=== PATIENT | male | born 1985 | race Caucasian/White ===

== ENCOUNTER 2016-08-26 10:27 | Emergency (ER) | payer OTHER, SELFPAY ==
--- NOTE | 2016-08-26 14:12 | EDDOCDS ---
Nurse's Notes [facility] Name: Low Shah Age: 30 yrs Sex: Male : 1985 Arrival Date: 08/26/2016 Time: 10:27 Bed TR7 Private MD: Trung Wong MD Diagnosis: Fall due to ice and snow;Low back pain Presentation: 08/26 10:32 Presenting complaint: Patient states: Pt reports falling on ice approx 45 minutes prior ead to arrival. Denies hitting head from fall. C/o lower back pain. Adult Sepsis Screening: The patient does not have new or worsening altered mentation. Patient's respiratory rate is less than 22. Systolic blood pressure is greater than 100. Patient has a qSOFA score of 0- Negative Sepsis Screen. Suicide/Homicide risk assessment- the patient denies having any suicidal and/or homicidal ideations and does not present with any other emotional, behavioral or mental health complaints. Status: Patient is not a surgical services assistant or dependent. Transition of care: patient was not received from another setting of care. 10:32 Acuity: TARIQ Level 4 ead 10:32 Method Of Arrival: Walkin/Carried/Asstd ead Triage Assessment: 10:33 General: Appears in no apparent distress, Behavior is appropriate for age, cooperative. ead Pain: Location: left low back and right low back Pain currently is 8 out of 10 on a pain scale. HIV screening NA for this visit Offered previously. Respiratory: Airway is patent Respiratory effort is even, unlabored. Musculoskeletal: Reports pain in low back area and left low back. Historical: - Allergies: no known allergies; - Home Meds: 1. none - PMHx: none; - PSHx: none; - Social history: Smoking status: Patient uses tobacco products, current every day smoker. No barriers to communication noted, The patient speaks fluent Icelandic, Speaks appropriately for age. - Family history: Not pertinent. - : The pt / caregiver states he / she is not on anticoagulants. Home medication list is obtained from the patient. - Exposure Risk Screening:: None identified. Screenin:11 Screening information is obtained from the patient. Fall risk: No risks identified. ead Assistance ADL's: requires no assistance with activities of daily living. Abuse/DV Screen: The patient / caregiver reports he/she is: not in a situation that causes fear, pain or injury. Nutritional screening: No deficits noted. Advance Directives: Currently, there is no health care proxy. There is no Power of Dining Chair Seat Cushion Trimmer. home support is adequate. Assessment: 14:03 General:. ead 14:08 Adult Sepsis Screening: The patient does not have new or worsening altered mentation. ead Patient's respiratory rate is less than 22. Systolic blood pressure is greater than 100. Patient has a qSOFA score of 0- Negative Sepsis Screen. General: Appears in no apparent distress, comfortable, Behavior is appropriate for age, cooperative. Neurological: Level of Consciousness is awake, alert, Oriented to person, place, time. Respiratory: Airway is patent Respiratory effort is even, unlabored. Derm: Skin is pink, warm & dry. Vital Signs: 10:29 BP 110 / 72; Pulse 101; Resp 16; Temp 98(O); Pulse Ox 100% ; Weight 108.86 kg (R); cmb Height 6 ft. 4 in. (193.04 cm) (R); Pain 8/10; 14:08 BP 124 / 75; Pulse 67; Resp 16; Temp 97.6(T); Pulse Ox 98% on R/A; ead 10:29 Body Mass Index 29.21 (108.86 kg, 193.04 cm) b Vitals: 10:29 Log In Time: August 26, 2016 at 10:27. cmb ED Course: 10:28 Patient visited by Lisa Henry. cmb 10:28 Patient moved to Waiting cmb 10:29 Trung Wong is Private Physician. cmb 10:30 Patient moved to Pre RCE cmb 10:33 Triage Initiated ead 11:31 Patient moved to Triage 2 kr3 12:31 [facility]ango [facility] dt4 12:32 Loni Juares MD is Attending Physician. dt4 12:32 Patient visited by Francheska Arango PA-C. dt4 12:54 Patient moved to TR1 ct3 14:01 Patient moved to PR1 / 25 ead 14:03 Patient moved to TR7 ead 14:04 Patient moved to PR2 / 26 ead 14:08 Patient moved to TR7 ead 14:10 The patient / caregiver is instructed regarding the plan of care and ED course. ead 14:10 No IV's were initiated during this patient's visit. No procedures done that require ead assistance. Order Results: There are currently no results for this order. Outcome: 13:59 Discharge ordered by Provider. dt4 14:10 Discharge Assessment: Patient awake and alert. obeys commands, Oriented to person, ead place and time. patient administered narcotics - no. 14:11 The following High Risk Discharge criteria are identified: None. Discharged to home ead ambulatory. Condition: improved. Discharge instructions given to patient, Instructed on discharge instructions, follow up and referral plans. medication usage, no driving heavy equipment, no drinking with medication, Demonstrated understanding of instructions, medications, Pt was receptive of discharge instructions/ teaching. Prescriptions given X 2. No special radiology studies were completed. Property sent home with patient. 14:11 Patient left the ED. ead Signatures: Kaitlynn Pearl,DALJIT RN kr3 Jennie Acuña, DIAL MAKER DIAL MAKER ct3 Lisa Henry Emily, RN RN ead Francheska Arango, PA-C PA-C dt4 MTDMaryann
--- NOTE | 2016-08-26 14:12 | EDDOCDS ---
Physician Documentation [facility] Name: Low Shah Age: 30 yrs Sex: Male : 1985 Arrival Date: 08/26/2016 Time: 10:27 Bed TR7 Private MD: Trung Wong MD Disposition: 08/26/16 13:59 Discharged to Home/Self Care. Impression: Fall due to ice and snow, Low back pain. - Condition is Stable. - Discharge Instructions: Back Pain, Adult. - Prescriptions for Naprosyn 500 mg Oral Tablet - take 1 tablet by ORAL route every 12 hours As needed take with food; 30 tablet. Cyclobenzaprine 10 mg Oral Tablet - take 1 tablet by ORAL route at bedtime As needed MAY CAUSE DROWSINESS.; 15 tablet. - Medication Reconciliation, Work Release Form - 1 day, Local Pharmacy Hours form. - Follow up: Emergency Department; When: As needed; Reason: Worsening of conditions. Follow up: Private Physician; When: 2 - 3 days; Reason: Wound/Symptom Recheck, Recheck today's complaints, Continuance of care. - Problem is new. - Symptoms are unchanged. Historical: - Allergies: no known allergies; - Home Meds: 1. none - PMHx: none; - PSHx: none; - Social history: Smoking status: Patient uses tobacco products, current every day smoker. No barriers to communication noted, The patient speaks fluent Lao, Speaks appropriately for age. - Family history: Not pertinent. - : The pt / caregiver states he / she is not on anticoagulants. Home medication list is obtained from the patient. - Exposure Risk Screening:: None identified. Vital Signs: 08/26 10:29 BP 110 / 72; Pulse 101; Resp 16; Temp 98(O); Pulse Ox 100% ; Weight 108.86 kg / 240 lbs cmb (R); Height 6 ft. 4 in. (193.04 cm) (R); Pain 8/10; 14:08 BP 124 / 75; Pulse 67; Resp 16; Temp 97.6(T); Pulse Ox 98% on R/A; ead 10:29 Body Mass Index 29.21 (108.86 kg, 193.04 cm) cmb MDM: 12:51 Spine. Lumbosacral, Complete Ordered. EDMS Signatures: Dispatcher [employer] Bing Laguerre,RN RN Francheska Underwood, MARICEL CONNELLY dt4 TELMAD
--- NOTE | 2016-08-26 14:17 | REP ---
LUMBAR SPINE, FIVE VIEWS: HISTORY: Injury. There is no acute fracture. The L5-S1 intervertebral disc is decreased in height consistent with disc degeneration. The facet joints are normal in appearance. There are 4 mm of retrolisthesis of L5 on S1. There is loss of the normal lordotic curve. IMPRESSION: Degenerative change as described above. Signed by Ish Archer MD 08/26/2016 02:18 P
--- NOTE | 2016-08-28 15:13 | EDDOCDS ---
Physician Documentation [facility] Name: Low Shah Age: 30 yrs Sex: Male : 1985 Arrival Date: 08/26/2016 Time: 10:27 Bed TR7 Private MD: Trung Wong MD Disposition: 08/26/16 13:59 Discharged to Home/Self Care. Impression: Fall due to ice and snow, Low back pain. - Condition is Stable. - Discharge Instructions: Back Pain, Adult. - Prescriptions for Naprosyn 500 mg Oral Tablet - take 1 tablet by ORAL route every 12 hours As needed take with food; 30 tablet. Cyclobenzaprine 10 mg Oral Tablet - take 1 tablet by ORAL route at bedtime As needed MAY CAUSE DROWSINESS.; 15 tablet. - Medication Reconciliation, Work Release Form - 1 day, Local Pharmacy Hours form. - Follow up: Emergency Department; When: As needed; Reason: Worsening of conditions. Follow up: Private Physician; When: 2 - 3 days; Reason: Wound/Symptom Recheck, Recheck today's complaints, Continuance of care. - Problem is new. - Symptoms are unchanged. Historical: - Allergies: no known allergies; - Home Meds: 1. none - PMHx: none; - PSHx: none; - Social history: Smoking status: Patient uses tobacco products, current every day smoker. No barriers to communication noted, The patient speaks fluent Telugu, Speaks appropriately for age. - Family history: Not pertinent. - : The pt / caregiver states he / she is not on anticoagulants. Home medication list is obtained from the patient. - Exposure Risk Screening:: None identified. Vital Signs: 08/26 10:29 BP 110 / 72; Pulse 101; Resp 16; Temp 98(O); Pulse Ox 100% ; Weight 108.86 kg / 240 lbs cmb (R); Height 6 ft. 4 in. (193.04 cm) (R); Pain 8/10; 14:08 BP 124 / 75; Pulse 67; Resp 16; Temp 97.6(T); Pulse Ox 98% on R/A; ead 10:29 Body Mass Index 29.21 (108.86 kg, 193.04 cm) cmb MDM: 12:51 Spine. Lumbosacral, Complete Ordered. EDMS 14:24 [facility] Payment Agreement was scanned into [employer] and attached to record. jp5 14:24 Financial registration complete. jp5 08/27 09:20 T-Sheet-- Draft Copy was scanned into [employer] and attached to record. gb 09:20 Radiology Report was scanned into [employer] and attached to record. gb Signatures: Dispatcher [employer] EDMS Mar Sweet, Reg Reg gb Bing Tang,RN RN Francheska Underwood PA-C PAEddy dt4 Jannie Ross jp5 The chart was reviewed and I authenticate all verbal orders and agree with the evaluation and treatment provided.Attachments: 08/26 14:24 [facility] Payment Agreement jp5 08/27 09:20 T-Sheet-- Draft Copy gb Chart Complete MTDD
--- NOTE | 2016-08-28 15:13 | EDDOCDS ---
Physician Documentation [facility] Name: Low Shah Age: 30 yrs Sex: Male : 1985 Arrival Date: 08/26/2016 Time: 10:27 Bed TR7 Private MD: Trung Wong MD Disposition: 08/26/16 13:59 Discharged to Home/Self Care. Impression: Fall due to ice and snow, Low back pain. - Condition is Stable. - Discharge Instructions: Back Pain, Adult. - Prescriptions for Naprosyn 500 mg Oral Tablet - take 1 tablet by ORAL route every 12 hours As needed take with food; 30 tablet. Cyclobenzaprine 10 mg Oral Tablet - take 1 tablet by ORAL route at bedtime As needed MAY CAUSE DROWSINESS.; 15 tablet. - Medication Reconciliation, Work Release Form - 1 day, Local Pharmacy Hours form. - Follow up: Emergency Department; When: As needed; Reason: Worsening of conditions. Follow up: Private Physician; When: 2 - 3 days; Reason: Wound/Symptom Recheck, Recheck today's complaints, Continuance of care. - Problem is new. - Symptoms are unchanged. Historical: - Allergies: no known allergies; - Home Meds: 1. none - PMHx: none; - PSHx: none; - Social history: Smoking status: Patient uses tobacco products, current every day smoker. No barriers to communication noted, The patient speaks fluent Kinyarwanda, Speaks appropriately for age. - Family history: Not pertinent. - : The pt / caregiver states he / she is not on anticoagulants. Home medication list is obtained from the patient. - Exposure Risk Screening:: None identified. Vital Signs: 08/26 10:29 BP 110 / 72; Pulse 101; Resp 16; Temp 98(O); Pulse Ox 100% ; Weight 108.86 kg / 240 lbs cmb (R); Height 6 ft. 4 in. (193.04 cm) (R); Pain 8/10; 14:08 BP 124 / 75; Pulse 67; Resp 16; Temp 97.6(T); Pulse Ox 98% on R/A; ead 10:29 Body Mass Index 29.21 (108.86 kg, 193.04 cm) cmb MDM: 12:51 Spine. Lumbosacral, Complete Ordered. EDMS 14:24 [facility] Payment Agreement was scanned into [employer] and attached to record. jp5 14:24 Financial registration complete. jp5 08/27 09:20 T-Sheet-- Draft Copy was scanned into [employer] and attached to record. gb 09:20 Radiology Report was scanned into [employer] and attached to record. gb Signatures: Dispatcher [employer] EDMS Mar Sweet, Reg Reg gb Bing Tang,RN RN Francheska Underwood PA-C PAEddy dt4 Jannie Ross jp5 The chart was reviewed and I authenticate all verbal orders and agree with the evaluation and treatment provided.Attachments: 08/26 14:24 [facility] Payment Agreement jp5 08/27 09:20 T-Sheet-- Draft Copy gb Chart Complete MTDD
--- NOTE | 2016-08-28 15:13 | EDDOCDS ---
Nurse's Notes [facility] Name: Low Shah Age: 30 yrs Sex: Male : 1985 Arrival Date: 08/26/2016 Time: 10:27 Bed TR7 Private MD: Trung Wong MD Diagnosis: Fall due to ice and snow;Low back pain Presentation: 08/26 10:32 Presenting complaint: Patient states: Pt reports falling on ice approx 45 minutes prior ead to arrival. Denies hitting head from fall. C/o lower back pain. Adult Sepsis Screening: The patient does not have new or worsening altered mentation. Patient's respiratory rate is less than 22. Systolic blood pressure is greater than 100. Patient has a qSOFA score of 0- Negative Sepsis Screen. Suicide/Homicide risk assessment- the patient denies having any suicidal and/or homicidal ideations and does not present with any other emotional, behavioral or mental health complaints. Status: Patient is not a mobile service rv technician or dependent. Transition of care: patient was not received from another setting of care. 10:32 Acuity: TARIQ Level 4 ead 10:32 Method Of Arrival: Walkin/Carried/Asstd ead Triage Assessment: 10:33 General: Appears in no apparent distress, Behavior is appropriate for age, cooperative. ead Pain: Location: left low back and right low back Pain currently is 8 out of 10 on a pain scale. HIV screening NA for this visit Offered previously. Respiratory: Airway is patent Respiratory effort is even, unlabored. Musculoskeletal: Reports pain in low back area and left low back. Historical: - Allergies: no known allergies; - Home Meds: 1. none - PMHx: none; - PSHx: none; - Social history: Smoking status: Patient uses tobacco products, current every day smoker. No barriers to communication noted, The patient speaks fluent Romansh, Speaks appropriately for age. - Family history: Not pertinent. - : The pt / caregiver states he / she is not on anticoagulants. Home medication list is obtained from the patient. - Exposure Risk Screening:: None identified. Screenin:11 Screening information is obtained from the patient. Fall risk: No risks identified. ead Assistance ADL's: requires no assistance with activities of daily living. Abuse/DV Screen: The patient / caregiver reports he/she is: not in a situation that causes fear, pain or injury. Nutritional screening: No deficits noted. Advance Directives: Currently, there is no health care proxy. There is no Power of Informal Waiter/Waitress. home support is adequate. Assessment: 14:03 General:. ead 14:08 Adult Sepsis Screening: The patient does not have new or worsening altered mentation. ead Patient's respiratory rate is less than 22. Systolic blood pressure is greater than 100. Patient has a qSOFA score of 0- Negative Sepsis Screen. General: Appears in no apparent distress, comfortable, Behavior is appropriate for age, cooperative. Neurological: Level of Consciousness is awake, alert, Oriented to person, place, time. Respiratory: Airway is patent Respiratory effort is even, unlabored. Derm: Skin is pink, warm & dry. Vital Signs: 10:29 BP 110 / 72; Pulse 101; Resp 16; Temp 98(O); Pulse Ox 100% ; Weight 108.86 kg (R); cmb Height 6 ft. 4 in. (193.04 cm) (R); Pain 8/10; 14:08 BP 124 / 75; Pulse 67; Resp 16; Temp 97.6(T); Pulse Ox 98% on R/A; ead 10:29 Body Mass Index 29.21 (108.86 kg, 193.04 cm) b Vitals: 10:29 Log In Time: August 26, 2016 at 10:27. cmb ED Course: 10:28 Patient visited by Lisa Henry. cmb 10:28 Patient moved to Waiting cmb 10:29 Trung Wong is Private Physician. cmb 10:30 Patient moved to Pre RCE cmb 10:33 Triage Initiated ead 11:31 Patient moved to Triage 2 kr3 12:31 Francheska Arango PA-C is [facility]. dt4 12:32 Loni Juares MD is Attending Physician. dt4 12:32 Patient visited by Francheska Arango PA-C. dt4 12:54 Patient moved to TR1 ct3 14:01 Patient moved to PR1 / 25 ead 14:03 Patient moved to TR7 ead 14:04 Patient moved to PR2 / 26 ead 14:08 Patient moved to TR7 ead 14:10 The patient / caregiver is instructed regarding the plan of care and ED course. ead 14:10 No IV's were initiated during this patient's visit. No procedures done that require ead assistance. 14:24 [facility] Payment Agreement was scanned into [employer] and attached to record. jp5 15:01 Spine. Lumbosacral, Complete Returned. EDMS 16:08 Patient name changed from Low\S\V\S\Tipton\S\ to Low\S\Vincent\S\Tipton. EDMS 08/27 09:20 T-Sheet-- Draft Copy was scanned into [employer] and attached to record. gb 09:20 Radiology Report was scanned into [employer] and attached to record. gb Order Results: Radiology Order: Spine. Lumbosacral, Complete Test: Spine. Lumbosacral, Complete REASON FOR EXAMINATION: back injury; LUMBAR SPINE, FIVE VIEWS:; ; HISTORY: Injury.; ; There is no acute fracture. The L5-S1 intervertebral disc is decreased in height; consistent with disc degeneration. The facet joints are normal in appearance.; There are 4 mm of retrolisthesis of L5 on S1. There is loss of the normal; lordotic curve.; ; IMPRESSION:; ; Degenerative change as described above.; ; ; Signed by; Ish Archer MD 08/26/2016 02:18 P; Outcome: 08/26 13:59 Discharge ordered by Provider. dt4 14:10 Discharge Assessment: Patient awake and alert. obeys commands, Oriented to person, ead place and time. patient administered narcotics - no. 14:11 The following High Risk Discharge criteria are identified: None. Discharged to home ead ambulatory. Condition: improved. Discharge instructions given to patient, Instructed on discharge instructions, follow up and referral plans. medication usage, no driving heavy equipment, no drinking with medication, Demonstrated understanding of instructions, medications, Pt was receptive of discharge instructions/ teaching. Prescriptions given X 2. No special radiology studies were completed. Property sent home with patient. 14:11 Patient left the ED. ead Signatures: Dispatcher [employer] EDMS Mar Sweet, Reg Kaitlynn Rg RN RN kr3 Jennie Acuña, ER REGISTRAR ER REGISTRAR ct3 Lisa Henry cmBing Agosto RN RN eaFrancheska Acuna, MARICEL PADaryaC dt4 Jannie Ross jp5 Chart Complete MTDD
== END 2016-08-26 14:11 | disposition home or self-care (01) ==
LOC: M ED 10:27
DX: M54.5 Low back pain (principal); F17.200 Nicotine dependence, unspecified, uncomplicated

== ENCOUNTER 2016-09-15 20:15 | Emergency (ER) | payer OTHER ==
[2016-09-15] MEDS ORDERED: NORCO 5/325MG TABLET (BULK) As Ordered ONE (22:54)
[2016-09-15] MEDS ORDERED: IBUPROFEN 800 MG TAB As Ordered ONE (22:55)
--- NOTE | 2016-09-15 23:10 | EDDOCDS ---
Nurse's Notes [facility] Name: Low Shah Age: 30 yrs Sex: Male : 1985 Arrival Date: 09/15/2016 Time: 20:15 Bed Triage 3 Private MD: Trung Wong MD Diagnosis: Pain in left hip Presentation: 09/15 20:19 Presenting complaint: Patient states: pt c/o left hip pain, states seen here approx 1 ead week ago after fall. reports pain worsening since. Adult Sepsis Screening: The patient does not have new or worsening altered mentation. Patient's respiratory rate is less than 22. Systolic blood pressure is greater than 100. Patient has a qSOFA score of 0- Negative Sepsis Screen. Suicide/Homicide risk assessment- the patient denies having any suicidal and/or homicidal ideations and does not present with any other emotional, behavioral or mental health complaints. 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 Transition of care: patient was not received from another setting of care. 20:19 Acuity: TARIQ Level 4 ead 20:19 Method Of Arrival: Walkin/Carried/Asstd ead 20:20 Presenting complaint: Patient states: pt reports unable to reach primary care, unable ead to schedule follow up appointment. Triage Assessment: 20:20 General: Appears in no apparent distress, Behavior is appropriate for age, cooperative. ead Pain: Location: left hip Pain currently is 7 out of 10 on a pain scale. HIV screening NA for this visit Offered previously. Neurological: Level of Consciousness is awake, alert, obeys commands, Oriented to person, place, time. Respiratory: No deficits noted. Derm: Skin is pink, warm & dry. Musculoskeletal: Reports pain in left hip and left leg. Historical: - Allergies: no known allergies; - Home Meds: 1. none - PMHx: none; - PSHx: none; - Social history: Smoking status: Patient uses tobacco products, current every day smoker. No barriers to communication noted, The patient speaks fluent Uruguayan, Speaks appropriately for age. - Family history: Not pertinent. - : The pt / caregiver states he / she is not on anticoagulants. Home medication list is obtained from the patient. - Exposure Risk Screening:: None identified. Screenin:07 Screening information is obtained from the patient. Fall risk: No risks identified. rw1 Assistance ADL's: requires no assistance with activities of daily living. Abuse/DV Screen: The patient / caregiver reports he/she is: not in a situation that causes fear, pain or injury. Nutritional screening: No deficits noted. Advance Directives: Currently, there is no health care proxy. home support is adequate. Assessment: 23:07 Reassessment: Patient appears in no apparent distress at this time. Patient states rw1 feeling better. Vital Signs: 20:17 BP 113 / 69; Pulse 84; Resp 18 S; Temp 96.3(O); Pulse Ox 97% on R/A; Weight 99.79 kg gr2 (R); Height 6 ft. 4 in. (193.04 cm) (R); Pain 7/10; 22:54 BP 125 / 73; Pulse 66; Resp 18; Temp 98.7(TE); Pulse Ox 97% on R/A; Pain 6/10; kb5 20:17 Body Mass Index 26.78 (99.79 kg, 193.04 cm) gr2 Vitals: 20:17 Log In Time: September 15, 2016 at 20:17. gr2 ED Course: 20:16 Patient visited by Garry Dykes. gr2 20:16 Patient moved to Waiting gr2 20:17 Trung Wong is Private Physician. gr2 20:18 Patient visited by Garry Dykes. gr2 20:18 Patient moved to Pre RCE gr2 20:19 Triage Initiated ead 22:10 Patient moved to Triage 3 ko2 22:30 Patient visited by Marleen Santoyo RN. ko2 22:36 Ruslan Wong PA is PHCP. mo1 22:36 Brandon De La Fuente DO is Attending Physician. mo1 22:47 Patient visited by Ruslan Wong PA. mo1 22:48 Haroldo Mustafa is Referral Physician. mo1 22:48 Rob Mcintyre is Referral Physician. mo1 22:55 Patient visited by Tim Bowman PCA. kb5 23:07 The patient / caregiver is instructed regarding the plan of care and ED course. rw1 23:07 No IV's were initiated during this patient's visit. No procedures done that require rw1 assistance. Administered Medications: 23:05 Drug: HYDROcodone-acetaminophen 4 pack- 1 packets [hydrocodone 5 mg-acetaminophen 325 rw1 mg tablet (1 tabs)] {Co-Signature: xochilt (Krista Dykes RN).} Route: PO; 23:06 Follow up: Response: Med's dispensed home rw1 23:06 Drug: Ibuprofen 800 mg [ibuprofen 800 mg tablet (1 tabs)] Route: PO; rw1 23:06 Follow up: Response: Pt left department before re-evaluation is appropriate rw1 Order Results: There are currently no results for this order. Outcome: 22:48 Discharge ordered by Provider. mo1 23:07 Discharge Assessment: Patient awake, alert and oriented x 3. No cognitive and/or rw1 functional deficits noted. Patient verbalized understanding of disposition instructions. patient administered narcotics - yes. Pt provided with safe discharge. The following High Risk Discharge criteria are identified: None. Discharged to home ambulatory. Condition: stable. Discharge instructions given to patient, Instructed on discharge instructions, follow up and referral plans. medication usage, no driving heavy equipment, Demonstrated understanding of instructions, medications, Pt was receptive of discharge instructions/ teaching. Prescriptions given X 1. No special radiology studies were completed. Property sent home with patient. 23:09 Patient left the ED. rw1 Signatures: Brien Ruggiero,YEIMY PITTN rw1 Tim Bowman, ZACK BOAT CLEANER kb5 Garry Dykes gr2 Ruslan Wong PA PA mo1 Bing Tang,RN Marleen Bustamante RN RN ko2 Krista lemon MTDD
--- NOTE | 2016-09-15 23:10 | EDDOCDS ---
Physician Documentation [facility] Name: Low Shah Age: 30 yrs Sex: Male : 1985 Arrival Date: 09/15/2016 Time: 20:15 Bed Triage 3 Private MD: Trung Wong MD Disposition: 09/15/16 22:48 Discharged to Home/Self Care. Impression: Pain in left hip. - Condition is Stable. - Discharge Instructions: Arthralgia, Musculoskeletal Pain, Hip Pain. - Prescriptions for Ibuprofen 800 mg Oral Tablet - take 1 tablet by ORAL route every 8 hours As needed take with food; 30 tablet. - Work Release Form - 2 day, Medication Reconciliation, Local Pharmacy Hours form. - Follow up: Haroldo Mustafa; When: Call to arrange an appointment; Reason: Recheck today's complaints, Continuance of care. Follow up: Rbo Mcintyre; When: Call to arrange an appointment; Reason: Recheck today's complaints, Continuance of care. - Problem is an ongoing problem. - Symptoms are unchanged. Historical: - Allergies: no known allergies; - Home Meds: 1. none - PMHx: none; - PSHx: none; - Social history: Smoking status: Patient uses tobacco products, current every day smoker. No barriers to communication noted, The patient speaks fluent South African, Speaks appropriately for age. - Family history: Not pertinent. - : The pt / caregiver states he / she is not on anticoagulants. Home medication list is obtained from the patient. - Exposure Risk Screening:: None identified. Vital Signs: 09/15 20:17 BP 113 / 69; Pulse 84; Resp 18 S; Temp 96.3(O); Pulse Ox 97% on R/A; Weight 99.79 kg / gr2 220 lbs (R); Height 6 ft. 4 in. (193.04 cm) (R); Pain 7/10; 22:54 BP 125 / 73; Pulse 66; Resp 18; Temp 98.7(TE); Pulse Ox 97% on R/A; Pain 6/10; kb5 20:17 Body Mass Index 26.78 (99.79 kg, 193.04 cm) gr2 MDM: 22:44 HYDROcodone-acetaminophen 4 pack- 5 mg-325 mg 1 packets PO Per package directions; mo1 Dispense with patient. 1 po q4h prn for pain ordered. 22:44 Ibuprofen 800 mg PO once ordered. mo1 Administered Medications: 23:05 Drug: HYDROcodone-acetaminophen 4 pack- 1 packets [hydrocodone 5 mg-acetaminophen 325 rw1 mg tablet (1 tabs)] {Co-Signature: xochilt (Krista Dykes RN).} Route: PO; 23:06 Follow up: Response: Med's dispensed home rw1 23:06 Drug: Ibuprofen 800 mg [ibuprofen 800 mg tablet (1 tabs)] Route: PO; rw1 23:06 Follow up: Response: Pt left department before re-evaluation is appropriate rw1 Signatures: Brien Ruggiero LPN LPN rw1 Ruslan Wong PA PA mo1 Bing Tang,RN RN ead Krista lemon MTDD
--- NOTE | 2016-09-18 00:10 | EDDOCDS ---
Nurse's Notes [facility] Name: Low Shah Age: 30 yrs Sex: Male : 1985 Arrival Date: 09/15/2016 Time: 20:15 Bed Triage 3 Private MD: Trung Wong MD Diagnosis: Pain in left hip Presentation: 09/15 20:19 Presenting complaint: Patient states: pt c/o left hip pain, states seen here approx 1 ead week ago after fall. reports pain worsening since. Adult Sepsis Screening: The patient does not have new or worsening altered mentation. Patient's respiratory rate is less than 22. Systolic blood pressure is greater than 100. Patient has a qSOFA score of 0- Negative Sepsis Screen. Suicide/Homicide risk assessment- the patient denies having any suicidal and/or homicidal ideations and does not present with any other emotional, behavioral or mental health complaints. Status: Patient is not a in service education teacher or dependent. Transition of care: patient was not received from another setting of care. 20:19 Acuity: TARIQ Level 4 ead 20:19 Method Of Arrival: Walkin/Carried/Asstd ead 20:20 Presenting complaint: Patient states: pt reports unable to reach primary care, unable ead to schedule follow up appointment. Triage Assessment: 20:20 General: Appears in no apparent distress, Behavior is appropriate for age, cooperative. ead Pain: Location: left hip Pain currently is 7 out of 10 on a pain scale. HIV screening NA for this visit Offered previously. Neurological: Level of Consciousness is awake, alert, obeys commands, Oriented to person, place, time. Respiratory: No deficits noted. Derm: Skin is pink, warm & dry. Musculoskeletal: Reports pain in left hip and left leg. Historical: - Allergies: no known allergies; - Home Meds: 1. none - PMHx: none; - PSHx: none; - Social history: Smoking status: Patient uses tobacco products, current every day smoker. No barriers to communication noted, The patient speaks fluent Somali, Speaks appropriately for age. - Family history: Not pertinent. - : The pt / caregiver states he / she is not on anticoagulants. Home medication list is obtained from the patient. - Exposure Risk Screening:: None identified. Screenin:07 Screening information is obtained from the patient. Fall risk: No risks identified. rw1 Assistance ADL's: requires no assistance with activities of daily living. Abuse/DV Screen: The patient / caregiver reports he/she is: not in a situation that causes fear, pain or injury. Nutritional screening: No deficits noted. Advance Directives: Currently, there is no health care proxy. home support is adequate. Assessment: 23:07 Reassessment: Patient appears in no apparent distress at this time. Patient states rw1 feeling better. Vital Signs: 20:17 BP 113 / 69; Pulse 84; Resp 18 S; Temp 96.3(O); Pulse Ox 97% on R/A; Weight 99.79 kg gr2 (R); Height 6 ft. 4 in. (193.04 cm) (R); Pain 7/10; 22:54 BP 125 / 73; Pulse 66; Resp 18; Temp 98.7(TE); Pulse Ox 97% on R/A; Pain 6/10; kb5 20:17 Body Mass Index 26.78 (99.79 kg, 193.04 cm) gr2 Vitals: 20:17 Log In Time: September 15, 2016 at 20:17. gr2 ED Course: 20:16 Patient visited by Garry Dykes. gr2 20:16 Patient moved to Waiting gr2 20:17 Trung Wong is Private Physician. gr2 20:18 Patient visited by Garry Dykes. gr2 20:18 Patient moved to Pre RCE gr2 20:19 Triage Initiated ead 22:10 Patient moved to Triage 3 ko2 22:30 Patient visited by Marleen Santoyo RN. ko2 22:36 Ruslan Wong PA is PHCP. mo1 22:36 Brandon De La Fuente DO is Attending Physician. mo1 22:47 Patient visited by Ruslan Wong PA. mo1 22:48 Haroldo Mustafa is Referral Physician. mo1 22:48 Rob Mcintyre is Referral Physician. mo1 22:55 Patient visited by Tim Bowman PCA. kb5 23:07 The patient / caregiver is instructed regarding the plan of care and ED course. rw1 23:07 No IV's were initiated during this patient's visit. No procedures done that require rw1 assistance. 23:47 [facility] Payment Agreement was scanned into [employer] and attached to record. pm4 09/16 09:17 T-Sheet-- Draft Copy was scanned into [employer] and attached to record. gb Administered Medications: 09/15 23:05 Drug: HYDROcodone-acetaminophen 4 pack- 1 packets [hydrocodone 5 mg-acetaminophen 325 rw1 mg tablet (1 tabs)] {Co-Signature: xochilt (Krista Dykes RN).} Route: PO; 23:06 Follow up: Response: Med's dispensed home rw1 23:06 Drug: Ibuprofen 800 mg [ibuprofen 800 mg tablet (1 tabs)] Route: PO; rw1 23:06 Follow up: Response: Pt left department before re-evaluation is appropriate rw1 Order Results: There are currently no results for this order. Outcome: 22:48 Discharge ordered by Provider. mo1 23:07 Discharge Assessment: Patient awake, alert and oriented x 3. No cognitive and/or rw1 functional deficits noted. Patient verbalized understanding of disposition instructions. patient administered narcotics - yes. Pt provided with safe discharge. The following High Risk Discharge criteria are identified: None. Discharged to home ambulatory. Condition: stable. Discharge instructions given to patient, Instructed on discharge instructions, follow up and referral plans. medication usage, no driving heavy equipment, Demonstrated understanding of instructions, medications, Pt was receptive of discharge instructions/ teaching. Prescriptions given X 1. No special radiology studies were completed. Property sent home with patient. 23:09 Patient left the ED. rw1 Signatures: Mar Sweet, Reg Reg gb Bahman,Brien,ORACLE BRM DEVELOPER ORACLE BRM DEVELOPER rw1 Tim Bowman, ZACK PRESS PIPE INSPECTOR kb5 Garry Dykes gr2 Ruslan Wong PA PA mo1 Bing Tang,RN Marleen Bustamante RN RN ko2 Haroldo Parra, Reg Reg pm4 Krista lemon Chart Complete MTDD
--- NOTE | 2016-09-18 00:10 | EDDOCDS ---
Physician Documentation [facility] Name: Low Shah Age: 30 yrs Sex: Male : 1985 Arrival Date: 09/15/2016 Time: 20:15 Bed Triage 3 Private MD: Trung Wong MD Disposition: 09/15/16 22:48 Discharged to Home/Self Care. Impression: Pain in left hip. - Condition is Stable. - Discharge Instructions: Arthralgia, Musculoskeletal Pain, Hip Pain. - Prescriptions for Ibuprofen 800 mg Oral Tablet - take 1 tablet by ORAL route every 8 hours As needed take with food; 30 tablet. - Work Release Form - 2 day, Medication Reconciliation, Local Pharmacy Hours form. - Follow up: Haroldo Mustafa; When: Call to arrange an appointment; Reason: Recheck today's complaints, Continuance of care. Follow up: Rob Mcintyre; When: Call to arrange an appointment; Reason: Recheck today's complaints, Continuance of care. - Problem is an ongoing problem. - Symptoms are unchanged. Historical: - Allergies: no known allergies; - Home Meds: 1. none - PMHx: none; - PSHx: none; - Social history: Smoking status: Patient uses tobacco products, current every day smoker. No barriers to communication noted, The patient speaks fluent Emirati, Speaks appropriately for age. - Family history: Not pertinent. - : The pt / caregiver states he / she is not on anticoagulants. Home medication list is obtained from the patient. - Exposure Risk Screening:: None identified. Vital Signs: 09/15 20:17 BP 113 / 69; Pulse 84; Resp 18 S; Temp 96.3(O); Pulse Ox 97% on R/A; Weight 99.79 kg / gr2 220 lbs (R); Height 6 ft. 4 in. (193.04 cm) (R); Pain 7/10; 22:54 BP 125 / 73; Pulse 66; Resp 18; Temp 98.7(TE); Pulse Ox 97% on R/A; Pain 6/10; kb5 20:17 Body Mass Index 26.78 (99.79 kg, 193.04 cm) gr2 MDM: 22:44 HYDROcodone-acetaminophen 4 pack- 5 mg-325 mg 1 packets PO Per package directions; mo1 Dispense with patient. 1 po q4h prn for pain ordered. 22:44 Ibuprofen 800 mg PO once ordered. mo1 23:47 [facility] Payment Agreement was scanned into [employer] and attached to record. pm4 09/16 09:17 T-Sheet-- Draft Copy was scanned into [employer] and attached to record. gb Administered Medications: 09/15 23:05 Drug: HYDROcodone-acetaminophen 4 pack- 1 packets [hydrocodone 5 mg-acetaminophen 325 rw1 mg tablet (1 tabs)] {Co-Signature: xochilt (Krista Dykes RN).} Route: PO; 23:06 Follow up: Response: Med's dispensed home rw1 23:06 Drug: Ibuprofen 800 mg [ibuprofen 800 mg tablet (1 tabs)] Route: PO; rw1 23:06 Follow up: Response: Pt left department before re-evaluation is appropriate rw1 Signatures: Mar Sweet, Reg Reg gb Brien Ruggiero,TYPEWRITER OPERATOR AUTOMATIC TYPEWRITER OPERATOR AUTOMATIC rw1 Ruslan Wong PA PA mo1 Bing Tang,RN RN eaaHroldo Gilliam, Reg Reg pm4 Krista lemon The chart was reviewed and I authenticate all verbal orders and agree with the evaluation and treatment provided.Attachments: 23:47 [facility] Payment Agreement pm4 09/16 09:17 T-Sheet-- Draft Copy gb Chart Complete MTDD
--- NOTE | 2016-09-18 00:10 | EDDOCDS ---
Physician Documentation [facility] Name: Low Shah Age: 30 yrs Sex: Male : 1985 Arrival Date: 09/15/2016 Time: 20:15 Bed Triage 3 Private MD: Trung Wong MD Disposition: 09/15/16 22:48 Discharged to Home/Self Care. Impression: Pain in left hip. - Condition is Stable. - Discharge Instructions: Arthralgia, Musculoskeletal Pain, Hip Pain. - Prescriptions for Ibuprofen 800 mg Oral Tablet - take 1 tablet by ORAL route every 8 hours As needed take with food; 30 tablet. - Work Release Form - 2 day, Medication Reconciliation, Local Pharmacy Hours form. - Follow up: Haroldo Mustafa; When: Call to arrange an appointment; Reason: Recheck today's complaints, Continuance of care. Follow up: Rob Mcintyre; When: Call to arrange an appointment; Reason: Recheck today's complaints, Continuance of care. - Problem is an ongoing problem. - Symptoms are unchanged. Historical: - Allergies: no known allergies; - Home Meds: 1. none - PMHx: none; - PSHx: none; - Social history: Smoking status: Patient uses tobacco products, current every day smoker. No barriers to communication noted, The patient speaks fluent Hong Konger, Speaks appropriately for age. - Family history: Not pertinent. - : The pt / caregiver states he / she is not on anticoagulants. Home medication list is obtained from the patient. - Exposure Risk Screening:: None identified. Vital Signs: 09/15 20:17 BP 113 / 69; Pulse 84; Resp 18 S; Temp 96.3(O); Pulse Ox 97% on R/A; Weight 99.79 kg / gr2 220 lbs (R); Height 6 ft. 4 in. (193.04 cm) (R); Pain 7/10; 22:54 BP 125 / 73; Pulse 66; Resp 18; Temp 98.7(TE); Pulse Ox 97% on R/A; Pain 6/10; kb5 20:17 Body Mass Index 26.78 (99.79 kg, 193.04 cm) gr2 MDM: 22:44 HYDROcodone-acetaminophen 4 pack- 5 mg-325 mg 1 packets PO Per package directions; mo1 Dispense with patient. 1 po q4h prn for pain ordered. 22:44 Ibuprofen 800 mg PO once ordered. mo1 23:47 [facility] Payment Agreement was scanned into [employer] and attached to record. pm4 09/16 09:17 T-Sheet-- Draft Copy was scanned into [employer] and attached to record. gb Administered Medications: 09/15 23:05 Drug: HYDROcodone-acetaminophen 4 pack- 1 packets [hydrocodone 5 mg-acetaminophen 325 rw1 mg tablet (1 tabs)] {Co-Signature: xochilt (Krista Dykes RN).} Route: PO; 23:06 Follow up: Response: Med's dispensed home rw1 23:06 Drug: Ibuprofen 800 mg [ibuprofen 800 mg tablet (1 tabs)] Route: PO; rw1 23:06 Follow up: Response: Pt left department before re-evaluation is appropriate rw1 Signatures: Mar Sweet, Reg Reg gb Brien Ruggiero,ON SITE COORDINATOR ON SITE COORDINATOR rw1 Ruslan Wong PA PA mo1 Bing Tang,RN RN eaHaroldo Gilliam, Reg Reg pm4 Krista lemon The chart was reviewed and I authenticate all verbal orders and agree with the evaluation and treatment provided.Attachments: 23:47 [facility] Payment Agreement pm4 09/16 09:17 T-Sheet-- Draft Copy gb Chart Complete MTDD
== END 2016-09-15 23:09 | disposition home or self-care (01) ==
LOC: M ED 20:15
DX: M16.12 Unilateral primary osteoarthritis, left hip (principal); M70.72 Other bursitis of hip, left hip; F17.210 Nicotine dependence, cigarettes, uncomplicated

== ENCOUNTER → 2016-09-28 | Outpatient (CLI) | payer OTHER ==
--- NOTE | 2016-09-28 17:54 | REP ---
Clinical: Back and left hip pain. Technique: Neutral and lateral views of the left hip. Findings: No acute fracture dislocation. No significant congenital or degenerative changes are appreciated. No periarticular calcifications. Surrounding soft tissues are unremarkable. Impression: Normal left hip. Signed by Lorenzo Whalen MD 09/28/2016 05:45 P
--- NOTE | 2016-09-28 17:58 | REP ---
Clinical: Lower back pain. Technique: AP, lateral, bilateral oblique and coned-down views of the lumbosacral spine. Comparison: 08/26/2016. Findings: Straightening of normal lordosis is stable. No acute fracture / compression injury or subluxation. There is endplate sclerosis and disc space narrowing at the L5-L1 level. Minimal disc space narrowing at the L1-2 level cannot be excluded as well. Impression: Mild degenerative disc disease at the L5-S1 level and possibly L1-L2 levels Signed by Lorenzo Whalen MD 09/28/2016 05:49 P
== END ==
LOC: M WUC 17:29
PROVIDERS: ATTEND Physician Assistant
DX: M54.5 Low back pain (principal); M25.552 Pain in left hip; M51.36 Other intervertebral disc degeneration, lumbar region; M51.37 Other intervertebral disc degeneration, lumbosacral region

== ENCOUNTER → 2016-10-15 | Outpatient (CLI) | payer OTHER ==
[~2016-10-15] MED LIST: CYCL10TA PO; IBUP200C PO
[2016-10-15 16:31] LABS: INR 0.89
== END ==
LOC: M LAB 15:54
PROVIDERS: ATTEND Orthopaedic Surgery
DX: M51.26 Other intervertebral disc displacement, lumbar region (principal)

== ENCOUNTER 2016-10-20 14:22 | Day surgery (SDC) | payer OTHER ==
[~2016-10-20] VITALS: Ht 193 cm; Wt 99.8 kg
[2016-10-20] MEDS ORDERED: LR 1,000 ML IV SCH ×3 (14:30→20:15)
[2016-10-20] MEDS ORDERED: PREGABALIN 75 MG CAP(LYRICA) PO ONE (14:30)
[2016-10-20] MEDS ORDERED: PERCOCET 5MG/325MG TAB PO ONE (14:30)
[2016-10-20] MEDS ORDERED: THROMBIN SOLN 20,000 UNITS KIT As Ordered ONE (17:12)
[2016-10-20] MEDS ORDERED: BUPIVACAINE/EPIN 0.25% 30 ML VIAL As Ordered ONE (17:12)
[2016-10-20] MEDS ORDERED: BACITRACIN PWD 50,000 UNITS VIAL As Ordered ONE (17:12)
[2016-10-20] MEDS ORDERED: PROPOFOL 500 MG/50 ML VIAL As Ordered ONE (18:09)
[2016-10-20] MEDS ORDERED: fentaNYL 250 MCG/5 ML INJECTION (J3010) As Ordered ONE (18:09)
[2016-10-20] MEDS ORDERED: MIDAZOLAM INJ 2 MG/2 ML VIAL (J2250) As Ordered ONE (18:09)
[2016-10-20] MEDS ORDERED: ONDANSETRON 4MG/2ML VIAL (J2405) As Ordered ONE (18:10)
[2016-10-20] MEDS ORDERED: dexameTHASONE 4 MG/ML 1ML VIAL (J1100) As Ordered ONE (18:10)
[2016-10-20] MEDS ORDERED: NEOSTIGMINE 1MG/ML 5 ML SYRINGE (J2710) As Ordered ONE (18:10)
[2016-10-20] MEDS ORDERED: LIDOCAINE 2% INJ 100 MG/5 ML SDV (FOR ANES.) As Ordered ONE (18:10)
[2016-10-20] MEDS ORDERED: GLYCOPYRROLATE INJ 0.2 MG/ML 2 ML VIAL As Ordered ONE (18:10)
[2016-10-20] MEDS ORDERED: ROCURONIUM BROMIDE 50 MG/5 ML VIAL As Ordered ONE (18:10)
[2016-10-20] MEDS ORDERED: HYDROmorphone HCL 2 MG/ML 1ML VIAL (J1170) As Ordered ONE (19:40)
[2016-10-20] MEDS ORDERED: fentaNYL 100 MCG/2 ML INJECTION (J3010) IV PRN (20:15)
[2016-10-20] MEDS ORDERED: PROMETHAZINE INJ 25 MG/ML VIAL (J2550) IV PRN (20:15)
[2016-10-20] MEDS ORDERED: ONDANSETRON 4MG/2ML VIAL (J2405) IV PRN (20:15)
[2016-10-20] MEDS ORDERED: PERCOCET 5MG/325MG TAB PO PRN ×3 (20:15)
[2016-10-20] MEDS: D5W/LR 1,000 ML IV SCH (20:15)
[2016-10-20] MEDS ORDERED: CelecoXIB 400 MG CAP PO ONE (20:15)
[2016-10-20] MEDS ORDERED: HYDROmorphone HCL 1 MG/ML SYRINGE (J1170) IV PRN ×2 (20:15)
[2016-10-20] MEDS ORDERED: CYCLOBENZAPRINE 10 MG TAB PO PRN (20:15)
[2016-10-20 20:30] VITALS: BP 134/86
[2016-10-20 21:00] VITALS: BP 135/82
[2016-10-20] MEDS: PREGABALIN 50 MG CAP (LYRICA) PO SCH (21:34)
[2016-10-20] MEDS: ASCORBIC ACID 500 MG TAB PO SCH (21:35)
[2016-10-20 23:00] VITALS: BP 135/78
[2016-10-21] VITALS: BP 125/61
[2016-10-21 01:00] VITALS: BP 117/70
[2016-10-21 04:00] VITALS: BP 119/72
[2016-10-21] MEDS: D5W/LR 1,000 ML IV SCH (04:35)
--- NOTE | 2016-10-21 07:51 | REP ---
Clinical: Intraoperative positioning. Technique: Portable cross-table view of the lumbar spine. Findings: The probe is identified via posterior approach at the L5-S1 level. Signed by Lorenzo Whalen MD 10/21/2016 07:43 A
[2016-10-21] MEDS: PREGABALIN 50 MG CAP (LYRICA) PO SCH (08:01)
[2016-10-21] MEDS: ASCORBIC ACID 500 MG TAB PO SCH (08:01)
[2016-10-21 08:18] VITALS: BP 102/74
[2016-10-21] MEDS ORDERED: MOM 30ML SUSPENSION UDC PO SCH (09:00)
--- NOTE | 2016-10-29 16:29 | RO ---
DATE OF PROCEDURE: 10/20/2016 PREOPERATIVE DIAGNOSIS: L5-S1 disc protrusion producing left lower extremity radiculopathy and lumbar spinal stenosis. POSTOPERATIVE DIAGNOSIS: L5-S1 disc protrusion producing left lower extremity radiculopathy and lumbar spinal stenosis. OPERATIVE PROCEDURE: Microdiscectomy left L5-S1 for removal of disc material and decompression of the traversing and exiting nerve roots. SURGEON: Fredrick Pfeiffer MD JIG OPERATOR: Ruslan Parker PA-C ANESTHESIA: General. ESTIMATED BLOOD LOSS: Less than 50 mL. REPLACED: Crystalloid. COMPLICATIONS: None. INDICATIONS: Significant discomfort radiating down the left lower extremity. MRI with evidence of quite significant lumbar spinal stenosis and disc extrusion at L5-S1 producing central and lateral recess spinal stenosis. The patient has elected for operative intervention. Consent reviewed in detail with the patient including a wesly discussion of the pathology involved, the procedure proposed, alternatives including doing nothing and risks including, but not limited to pain, failure, infection, bleeding blood loss, need for more surgery, nerve injury and other problems. The patient agrees to proceed with surgery. DESCRIPTION OF OPERATION: Identified in the holding area, site and side verified, brought to the operating room. General endotracheal anesthesia was administered. He was positioned on the Donald frame for exposure of lumbar spine. Once I and the environmental systems coordinator were comfortable with the patient's positioning he was then sterilely prepped and draped in the usual fashion for exposure. Next, incision was based on bony landmarks the iliac crest two and a half fingerbreadths long, infiltrated with 0.25% Marcaine with epinephrine and made with a #10 blade knife. I conducted the first portion of procedure using loupe and a headlamp magnification, Christin on the patient's left side and Mr. Ram on the patient's right side. Paraspinal muscles were reflected off of the midline and the dissection continued over the L5 lamina. Drill was utilized to drill a divot in the L5 lamina and a Sukhwinder-Melissa retractor was placed in the divot and a cross-table lateral x-ray was taken to verify level. Once this was accomplished, my loupe and headlamp were exchanged. The operating microscope was brought in and the divot was again utilized to localize and place the microscope. Next the high-speed bur was then utilized to implement the left unilateral laminotomy at the L5-S1 level extending superiorly to the bare area, slightly undercutting the spinous process and extending inferiorly to the bare area of S1. There was significant spinal stenosis and there was also quite significant hypertrophied epidural vein especially appreciated superior to the disc. There was some fluid around the facet complex that seemed to having brackish consistency such as there might be hemosiderin within it. Next, I was able to sweep the traversing nerve root in the thecal sac medially and exposed the disc herniation, which was actually quite large and perhaps at least as big as it appeared on the MRI. I opened the posterior longitudinal ligament with an #11 blade and disc material was able to be extruded and retrieved decompressing the thecal sac and spinal stenosis. I retrieved the disc material also with pituitaries in piecemeal fashion and I verified decompression of the subarticular space, the neural foramina and the traversing nerve root. Next, hemostasis was accomplished with bipolar cautery. Irrigation was accomplished. Retractors were removed. Posterior lumbar fascia was reapproximated with interrupted and running stitch. Sterile dressing applied and the patient was then moved to the hospital bed, extubated, moved to recovery room in good condition. For further details please refer to medical record.
== END 2016-10-21 09:30 | disposition home or self-care (01) ==
LOC: M SDC 14:22 → M PED 20:14 → M SDC 10-21 09:30
PROVIDERS: ATTEND Orthopaedic Surgery
DX: M51.17 Intervertebral disc disorders with radiculopathy, lumbosacral region (principal); M48.07 Spinal stenosis, lumbosacral region; F17.290 Nicotine dependence, other tobacco product, uncomplicated; F12.90 Cannabis use, unspecified, uncomplicated; R06.83 Snoring; Z79.899 Other long term (current) drug therapy

== ENCOUNTER 2017-02-14 10:58 | Emergency (ER) | payer OTHER ==
[~2017-02-14] VITALS: Ht 193 cm; Wt 94.6 kg
[2017-02-14 10:58] VITALS: BP 120/82
[~2017-02-14 10:58] MED LIST changes: -IBUP200C PO; +IBUP200C10 PO
[2017-02-14] MEDS ORDERED: NORCOTAB PO (11:54)
[2017-02-14] MEDS ORDERED: VALT1TAB PO (11:54)
[2017-02-14] MEDS ORDERED: NORCO, ANEXSIA 5/325MG TABLET (HYDROcodone/ACETAMINOPHEN) PO ONE (12:00)
[2017-02-14] MEDS ORDERED: valACYclovir HCL 500 MG TAB PO ONE (12:00)
== END 2017-02-14 12:09 | disposition home or self-care (01) ==
LOC: M ED 10:58
DX: B02.9 Zoster without complications (principal); R21 Rash and other nonspecific skin eruption; F17.200 Nicotine dependence, unspecified, uncomplicated